=== PATIENT | female | born 1960 | race Caucasian/White ===

== ENCOUNTER 2019-05-06 11:37 | Observation (INO) | payer BC ==
--- NOTE | 2019-05-06 16:28 | ULT ---
RIGHT LOWER EXTREMITY VENOUS DUPLEX ULTRASOUND: HISTORY: Right leg pain with pain in the inner thigh. Heart cath done Tuesday. TECHNIQUE: Real-time color Doppler evaluation of the right lower extremity was performed to include the common f emoral, superficial femoral, profunda femoral, saphenous, popliteal, and posterior tibial veins. FINDINGS: This shows some incomplete compressibility of the distal superficial femoral vein, in the more distal thigh region. The patient was uncomfortable for this examination, tensing up. There was good blood f low demonstrated. I do not think this represents any type of DVT. The remainder of the veins compress normally with normal augmentation. 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 IMPRESSION: 1. No evidence of deep venous thrombosis. 2. 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 POS: [facility]
[2019-05-06] MEDS ORDERED: Morphine 2 MG/ML SYRINGE SLOW IVP PRN (17:24)
[2019-05-06] MEDS ORDERED: Morphine 4 MG/ML VIAL IV PRN (17:25)
[2019-05-06] MEDS ORDERED: Morphine 4 MG/ML VIAL ONE (17:25)
--- NOTE | 2019-05-06 20:13 | ULT ---
RIGHT GROIN ULTRASOUND: HISTORY: Post compression. FINDINGS: The pseudoaneurysm is decreased as compared to the prior examination however there is still a blind e nding vascular structure arising from the common femoral artery which is felt to represent the pseudo aneurysm neck. IMPRESSION: Persistent pseudoaneurysm neck. POS: [facility]
[2019-05-06] MEDS ORDERED: Atorvastatin Calcium 10 MG TAB PO SCH (21:00)
[2019-05-06 21:47] VITALS: BMI 41.5
--- NOTE | 2019-05-07 01:46 | CON ---
DATE OF CONSULTATION: HISTORY OF PRESENT ILLNESS: The patient is a pleasant 59-year-old woman who presents for evaluation of pain in her right groin. The patient has no previous cardiac history. She underwent a recent cardiac catheterization done at the [facility] and apparently to have normal left systolic function with normal coronary arteries. The patient went home after the procedure and started noticing pain in the right groin. The patient came to the emergency room for further evaluation. PAST MEDICAL HISTORY: 1. Diabetes mellitus. 2. Hypertension. PAST SURGICAL HISTORY: She has had knee surgery, D and C. SOCIAL HISTORY: Nonsmoker. MEDICATION: On admission Synthroid 0.1 mg tablet daily, lisinopril 10 daily, HCTZ 25 daily, and atorvastatin 1 tablet at bedtime. SOCIAL HISTORY: Nonsmoker. FAMILY HISTORY: Positive family history of heart disease. ALLERGIES: NO KNOWN DRUG ALLERGIES. PHYSICAL EXAMINATION: GENERAL: Obese woman in no acute distress. VITAL SIGNS: Blood pressure was 140/70. NECK: No jugular venous distention. LUNGS: Clear to auscultation. HEART: Regular rate and rhythm. ABDOMEN: Nondistended. EXTREMITIES: Showed a right groin pseudoaneurysm. The right groin was distended. LABORATORY RESULTS: Pending. IMPRESSION: 1. Pseudoaneurysm. 2. Hypertension. 3. Diabetes mellitus. PLAN: This patient presents with right groin pseudoaneurysm. Cardiac catheterization laboratory will be called to perform compression. 1. Admit to observation. 2. Right groin pseudoaneurysm compression. Please call my office. Job ID: [id number]
[2019-05-07 03:39] VITALS: TEMP 98.6
[2019-05-07] MEDS ORDERED: Sodium Chloride 0.9% 1,000 ML IV SCH (06:00)
[2019-05-07 06:35] LABS: #Basophils 0.1 thou/uL (0.0-0.2); #Eosinphils 0.4 thou/uL (0.0-0.7); #Lymphocytes 4.2 thou/uL (1.20-3.40); #Monocytes 0.7 thou/uL (0.11-0.59); #Neutrophils 6.1 thou/uL (1.40-6.50); %Basophils 0.8 % (0.0-1.0); %Eosinophils 3.2 % (0.0-10.0); %Lymphocytes 36.6 % (21.0-51.0); %Monocytes 6.2 % (0.0-10.0); %Neutrophils 53.2 % (42.0-75.0); Hemoglobin 12.8 g/dL (12.0-16.0); Mean Corpuscular HGB CONC 32.8 g/dL (32.0-36.0); Mean Corpuscular Hemoglobin 26.6 pg (27.0-31.0); Mean Corpuscular Volume 81.2 fL (78.0-98.0); Mean Platelet Volume 8.7 fL (7.4-10.4); Platelet Count 289 thou/uL (130-400); RBC Distribution Width 12.7 % (11.5-14.5); White Blood Cell (WBC) Count 11.4 thou/uL (4.8-10.8)
[2019-05-07 06:48] LABS: Anion Gap 16 mmol/L (10-20); BUN (Urea Nitrogen) 15 mg/dL (9.8-20.1); Calc. Creatinine Clearance 145 mL/min (70-130); Carbon Dioxide 26 mmol/L (22-29); Chloride 101 mmol/L (98-107); Estimated GFR-MDRD 73; Glucose 216 mg/dL (70-105); Potassium 4.8 mmol/L (3.5-5.1); Sodium 138 mmol/L (136-145)
--- NOTE | 2019-05-07 06:53 | CON ---
DATE OF CONSULTATION: HISTORY OF PRESENT ILLNESS: This is a 59-year-old female, who underwent cardiac catheterization at an outside facility this past week. She reported some discomfort in the groin area on the right as well as some paresthesias in her thigh. She was seen in the emergency room yesterday, where an ultrasound demonstrated a pseudoaneurysm and compression therapy was carried out and it appears to me that the pseudoaneurysm is mostly resolved. PAST MEDICAL HISTORY: Includes hypertension and diabetes mellitus. MEDICATIONS: Include; 1. Synthroid. 2. Lisinopril. 3. Hydrochlorothiazide. 4. Atorvastatin. PAST SURGICAL HISTORY: Includes bilateral knee arthroscopy, D and C. SOCIAL HISTORY: Lives in the [facility]. Raises cattle. Nonsmoker. PHYSICAL EXAMINATION: GENERAL: Alert, cooperative lady, in no distress. ABDOMEN: Obese with a large incarcerated umbilical hernia, unable to reduce this. She has palpable dorsalis pedis pulses bilaterally. She has a puncture site in the right groin and not particularly tender at this time and no bruits. ASSESSMENT/PLAN: I have reviewed both ultrasounds and it appeared that the pseudoaneurysm had mostly resolved after compression and we will recheck this morning if the ultrasound shows persistent pseudoaneurysm, then surgical intervention will be undertaken. Additional medications include metformin 1000 b.i.d. as well as glyburide 10 mg a day. Job ID: [id number]
--- NOTE | 2019-05-07 08:23 | ULT ---
VASCULAR ULTRASOUND RIGHT INGUINAL REGION: CLINICAL HISTORY: Pseudoaneurysm. FINDINGS: Doppler color flow imaging adjacent the right femoral artery reveals a focal outpouching with interna l flow which is compatible with a pseudoaneurysm. This measures approximately 9 mm in diameter. IMPRESSION: Subcentimeter pseudoaneurysm of the right inguinal region. Transcribed Date/Time: 05/07/2019 8:36 AM
[2019-05-07] MEDS ORDERED: Lisinopril 10 MG TAB PO SCH (09:00)
[2019-05-07] MEDS ORDERED: Hydrochlorothiazide 25 MG TAB PO SCH (09:00)
[2019-05-07] MEDS ORDERED: Heparin 5,000 UNITS/ML VIAL ONE (09:54)
[2019-05-07] MEDS ORDERED: Bupivacaine HCl 0.5%/Epinephrine 1:200,000/PF 30 ml Vial ONE (09:54)
[2019-05-07] MEDS ORDERED: Protamine Sulfate 50 MG/5 ML VIAL ONE (09:54)
[2019-05-07] MEDS ORDERED: Fentanyl 100 MCG/2 ML VIAL ONE ×4 (10:05→12:29)
[2019-05-07] MEDS ORDERED: Morphine 4 MG/ML VIAL ONE (12:41)
[2019-05-07] MEDS ORDERED: Morphine 2 MG/ML SYRINGE ONE (12:51)
--- NOTE | 2019-05-07 14:03 | OP ---
DATE OF PROCEDURE: 05/07/2019 PREOPERATIVE DIAGNOSIS: Right femoral artery pseudoaneurysm. POSTOPERATIVE DIAGNOSIS: Right femoral artery pseudoaneurysm/clotted pseudoaneurysm. ANESTHESIA: General, LMA. ESTIMATED BLOOD LOSS: Less than 10. DESCRIPTION OF PROCEDURE: After adequate anesthesia had been obtained, the patient was prepped and draped with tape holding her abdominal wall off her groin. A transverse incision was made just cephalad to the puncture site, carried through about 5 cm of adipose tissue. Femoral artery was dissected out proximal to the hematoma and then dissection carried cephalad exposing a medial and lateral profunda branch as well as the superficial femoral artery. The pseudoaneurysm cavity was entered and there was fresh clot; however, there was no active bleeding. The puncture site was ultimately discovered on the distal-most aspect of the common femoral artery and a 6-0 Prolene suture was placed x2 and had to ensure no further bleeding. The wound was then closed in layers and the patient was to be taken to the recovery room in guarded condition. Job ID: [id number]
[2019-05-07] MEDS ORDERED: HYDROcodone/Acetaminophen 5/325 mg Tablet PO PRN ×2 (15:31)
[2019-05-07] MEDS ORDERED: Ondansetron PF 4 MG/2 ML Vial ONE (15:51)
[2019-05-07] MEDS ORDERED: Dexamethasone 20 MG/5 ML VIAL ONE (15:51)
[2019-05-07] MEDS ORDERED: PROPOFOL 200 MG/20 ML VIAL ONE (15:51)
[2019-05-07] MEDS ORDERED: Lidocaine 1% PF 5 ML VIAL ONE (15:51)
[2019-05-07 16:47] VITALS: BP 133/81
[2019-05-07] MEDS ORDERED: FLU VACC QS2019-20(6MOS UP)/PF 60 MCG/0.5 ML SYRINGE IM ONE (21:00)
--- NOTE | 2019-05-07 22:10 | CON ---
DATE OF CONSULTATION: 05/07/2019 CHIEF COMPLAINT: Hernias. HISTORY OF PRESENT ILLNESS: This is a 59-year-old female, who was admitted for pseudoaneurysm repair by Dr. Bennett. She had had a cardiac cath at an outside institution within the last week. I was consulted because she has a history of chronic large umbilical and ventral hernias, she states had been present for several years and they only hurt when they are pushed on. She said she has reduced some in the past but not recently. She has no pain. No nausea or vomiting. No change in stools. She is active otherwise. 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 She denies previous abdominal surgery. PAST MEDICAL HISTORY: Includes diabetes mellitus and hypertension. SURGICAL HISTORY: Knee and D and C. MEDICATIONS: 1. Synthroid. 2. Lisinopril. 3. Hydrochlorothiazide. 4. Statin. SOCIAL HISTORY: . Nonsmoker. No alcohol or other drugs. REVIEW OF SYSTEMS: Ten-system review of systems is otherwise negative unless described above. PHYSICAL EXAMINATION: VITAL SIGNS: Blood pressure 127/81, pulse 76, and respirations 16. She is afebrile. HEENT: Sclerae anicteric. Oropharynx clear. NECK: No lymphadenopathy. CHEST: Clear. HEART: Regular rate and rhythm. ABDOMEN: Soft, nontender, nondistended. She has partially reducible umbilical and ventral hernias. No evidence of strangulation. No peritoneal signs or guarding. ASSESSMENT: 1. Large umbilical and ventral hernias. 2. Status post pseudoaneurysm repair. 3. Hypertension. 4. Diabetes mellitus, type 2. 5. Morbid obesity. PLAN: These could certainly be repaired. It would be elective. She is safe for discharge to come back and see me in the office in the next few weeks. I gave her my office number to call to make that appointment. They are concerned about timing of this surgery and whether it could wait until early 2019 and I think that it can. However, we will follow her closely as an outpatient until repair. I also recommend that she start cutting out carbs in order to lose weight prior to that surgery that would potentially lower her risk of complications and recurrence. We will see her back in the office. Okay to discharge from my standpoint. Job ID: [id number]
== END 2019-05-07 17:50 | disposition home or self-care (01) ==
LOC: ERS 11:37 → SURG B 19:52
PROVIDERS: ADMIT Internal Medicine; ATTEND Internal Medicine
PROC: 04QK0ZZ Repair Right Femoral Artery, Open Approach (ICD-10-PCS; principal; 2019-05-07)
DX: I72.4 Aneurysm of artery of lower extremity (principal); I10 Essential (primary) hypertension; E11.9 Type 2 diabetes mellitus without complications; K43.9 Ventral hernia without obstruction or gangrene; K42.9 Umbilical hernia without obstruction or gangrene; E66.01 Morbid (severe) obesity due to excess calories; Z68.41 Body mass index [BMI] 40.0-44.9, adult; Z79.84 Long term (current) use of oral hypoglycemic drugs; Z79.899 Other long term (current) drug therapy
CPT/HCPCS: 36415; 76936; 80048; 85025; 90471; 90686; 96374; 96375; G0008; G0378; J0670; J0690; J1100; J1644; J2001; J2270; J2405; J2704; J2720; J3010

== ENCOUNTER 2021-03-24 17:46 | Inpatient (IN) | payer BC, OTHER ==
[2021-03-24 19:24] LABS: #Eosinphils 0.3 thou/uL (0.0-0.7); #Lymphocytes 2.9 thou/uL (1.20-3.40); #Monocytes 0.7 thou/uL (0.11-0.59); #Neutrophils 5.4 thou/uL (1.40-6.50); %Basophils 0.3 % (0.0-1.0); %Eosinophils 3.7 % (0.0-10.0); %Monocytes 7.5 % (0.0-10.0); %Neutrophils 57.5 % (42.0-75.0); Hemoglobin 12.8 g/dL (12.0-16.0); Mean Corpuscular HGB CONC 32.4 g/dL (32.0-36.0); Mean Corpuscular Hemoglobin 26.1 pg (27.0-31.0); Mean Corpuscular Volume 80.6 fL (78.0-98.0); Mean Platelet Volume 8.8 fL (7.4-10.4); Platelet Count 258 thou/uL (130-400); RBC Distribution Width 12.6 % (11.5-14.5); White Blood Cell (WBC) Count 9.4 thou/uL (4.8-10.8)
[2021-03-24 19:48] LABS: ALT (SGPT) 14 U/L (8-55); AST (SGOT) 12 U/L (5-34); Albumin 4.2 g/dL (3.5-5.0); Alkaline Phosphatase 81 U/L (40-110); Anion Gap 17 mmol/L (10-20); BUN (Urea Nitrogen) 13 mg/dL (9.8-20.1); Bilirubin, Total 0.4 mg/dL (0.2-1.2); Calc. Creatinine Clearance 0 mL/min (70-130); Calcium 9.3 mg/dL (7.8-10.44); Carbon Dioxide 23 mmol/L (22-29); Chloride 103 mmol/L (98-107); Glucose 116 mg/dL (70-105); Lipase 15 U/L (8-78); Potassium 4.1 mmol/L (3.5-5.1); Protein, Total 7.2 g/dL (6.0-8.3); Sodium 139 mmol/L (136-145)
[2021-03-24] MEDS ORDERED: Morphine 4 MG/ML VIAL ONE (20:05)
[2021-03-24 20:15] LABS: Bilirubin Negative (Negative); Blood, Urine Negative (Negative); Clarity Clear (Clear); Glucose, Urine (Dipstick) Normal (Negative); Ketone, Urine Negative (Negative); Leukocyte Negative Leu/uL (Negative); Nitrite Negative (Negative); Protein, Urine (Dipstick) Negative (Neg-Trace); Specific Gravity, Urine 1.005 (1.002-1.036); Urobilinogen Normal mg/dL (Less than 2); pH, Urine 5.5 (5.0-9.0)
[2021-03-24 20:16] LABS: Pregnancy Test - Urine (BHCG) Negative (Negative); Pregu Control Background? CLEAR/WHITE (CLR/WHITE); Pregu Control Bar Appear? YES (CONTROL BAR); Specific Gravity 1.005 (1.002-1.036)
[2021-03-24] MEDS ORDERED: Promethazine HCl 25 MG/ML VIAL IM PRN (22:40)
[2021-03-24] MEDS ORDERED: hydrALAZINE 20 MG/ML VIAL SLOW IVP PRN (22:40)
[2021-03-24] MEDS ORDERED: Dextrose 50% Abboject 50 ML SYRINGE SLOW IVP PRN (22:40)
[2021-03-24] MEDS ORDERED: Dextrose 5% in Water 1,000 ML IV PRN (22:40)
[2021-03-24] MEDS ORDERED: Fentanyl 100 MCG/2 ML VIAL SLOW IVP PRN (22:40)
[2021-03-24] MEDS ORDERED: Acetaminophen 325 MG TAB PO PRN (22:40)
[2021-03-24] MEDS ORDERED: HumaLOG 300 UNITS/3 ML VIAL SC PRN (22:40)
[2021-03-24] MEDS ORDERED: Ondansetron PF 4 MG/2 ML Vial IVP PRN (22:40)
[2021-03-24] MEDS ORDERED: HYDROcodone/Acetaminophen 7.5/325 mg Tablet PO PRN (22:40)
[2021-03-24] MEDS: Sodium Chloride 0.9% 1,000 ML IV SCH (23:30)
[2021-03-24] MEDS: Famotidine 20 MG TAB PO SCH (23:38)
[2021-03-24] MEDS: Famotidine/PF 20 mg/2ml Vial SLOW IVP SCH (23:43)
[2021-03-25 00:44] VITALS: BMI 38.2
[2021-03-25] MEDS: Levothyroxine Sodium 25 MCG TAB PO SCH (05:20)
[2021-03-25 08:04] LABS: SARS-CoV-2 NAA Rapid Test Not Detected (NotDetected)
[2021-03-25] MEDS ORDERED: Hydrochlorothiazide 25 MG TAB PO SCH (09:00)
[2021-03-25] MEDS ORDERED: Lisinopril 10 MG TAB PO SCH (09:00)
[2021-03-25 10:54] LABS: Anion Gap 17 mmol/L (10-20); BUN (Urea Nitrogen) 14 mg/dL (9.8-20.1); Calc. Creatinine Clearance 149 mL/min (70-130); Calcium 8.8 mg/dL (7.8-10.44); Carbon Dioxide 20 mmol/L (22-29); Chloride 104 mmol/L (98-107); Glucose 157 mg/dL (70-105); Potassium 4.4 mmol/L (3.5-5.1); Sodium 137 mmol/L (136-145)
[2021-03-25 11:50] LABS: #Eosinphils 0.3 thou/uL (0.0-0.7); #Lymphocytes 2.2 thou/uL (1.20-3.40); #Neutrophils 7.2 thou/uL (1.40-6.50); %Basophils 0.4 % (0.0-1.0); %Eosinophils 2.9 % (0.0-10.0); %Lymphocytes 20.1 % (21.0-51.0); %Neutrophils 67.5 % (42.0-75.0); Mean Corpuscular HGB CONC 32.5 g/dL (32.0-36.0); Mean Corpuscular Hemoglobin 26.2 pg (27.0-31.0); Mean Corpuscular Volume 80.5 fL (78.0-98.0); Mean Platelet Volume 8.5 fL (7.4-10.4); Platelet Count 227 thou/uL (130-400); RBC Distribution Width 12.5 % (11.5-14.5); Red Blood Cell (RBC) Count 4.59 mill/uL (4.20-5.40); White Blood Cell (WBC) Count 10.7 thou/uL (4.8-10.8)
[2021-03-25] MEDS: glyBURIDE 5 MG TAB PO SCH (18:38)
[2021-03-25] MEDS: Sodium Chloride 0.9% 1,000 ML IV SCH ×3 (18:39→20:53)
[2021-03-25] MEDS: metFORMIN 500 MG TAB PO SCH (18:39)
[2021-03-25] MEDS: Famotidine/PF 20 mg/2ml Vial SLOW IVP SCH ×2 (18:40→20:45)
[2021-03-25] MEDS: Famotidine 20 MG TAB PO SCH ×2 (18:40→20:47)
[2021-03-25] MEDS ORDERED: Atorvastatin Calcium 40 MG TAB PO SCH (21:00)
[2021-03-26 05:38] VITALS: TEMP 97.9
[2021-03-26] MEDS: Levothyroxine Sodium 25 MCG TAB PO SCH (05:43)
[2021-03-26] MEDS: glyBURIDE 5 MG TAB PO SCH (05:51)
[2021-03-26] MEDS ORDERED: Bupivacaine 0.25% HCL 30 ML VIAL ONE (06:36)
[2021-03-26] MEDS ORDERED: Lidocaine 1% w/Epinephrine 1:100K 20 ML VIAL ONE (06:36)
[2021-03-26] MEDS ORDERED: Fentanyl 100 MCG/2 ML VIAL ONE ×3 (06:47→10:00)
[2021-03-26] MEDS ORDERED: HYDROmorphone 0.5 MG/0.5 ML SYRINGE ONE (06:47)
[2021-03-26] MEDS ORDERED: Midazolam HCl 2 mg/2 ml Vial ONE (07:26)
[2021-03-26] MEDS ORDERED: Lidocaine 1% PF 5 ML VIAL ONE (07:42)
[2021-03-26] MEDS ORDERED: Dexamethasone 20 MG/5 ML VIAL ONE (07:42)
[2021-03-26] MEDS ORDERED: Glycopyrrolate 0.2 MG/ML 5 ML SYRINGE ONE (07:42)
[2021-03-26] MEDS ORDERED: Rocuronium Bromide 10 MG/ML (10ML VIAL) ONE (07:42)
[2021-03-26] MEDS ORDERED: Ondansetron PF 4 MG/2 ML Vial ONE (07:42)
[2021-03-26] MEDS ORDERED: PROPOFOL 200 MG/20 ML VIAL ONE (07:42)
[2021-03-26] MEDS ORDERED: Ketorolac Tromethamine 30 MG/ML VIAL ONE (07:42)
[2021-03-26] MEDS ORDERED: HYDROcodone/Acetaminophen 7.5/325 mg Tablet PO PRN (09:06)
[2021-03-26] MEDS ORDERED: HYDROmorphone 2 MG/ML VIAL SLOW IVP PRN (09:24)
[2021-03-26] MEDS ORDERED: Promethazine HCl 25 MG/ML VIAL IVPB PRN (09:24)
[2021-03-26] MEDS ORDERED: Meperidine HCl/PF 25 MG/ML VIAL SLOW IVP PRN (09:24)
[2021-03-26] MEDS ORDERED: Promethazine HCl 25 MG/ML VIAL IM PRN (09:24)
[2021-03-26] MEDS ORDERED: Ondansetron HCl/PF 4 MG/2 ML Vial IVP PRN (09:24)
[2021-03-26] MEDS: HYDROcodone/Acetaminophen 7.5/325 mg Tablet PO PRN ×2 (12:04→16:34)
[2021-03-26 13:01] VITALS: BP 120/70
== END 2021-03-26 17:11 | disposition home or self-care (01) | DRG 355 ==
LOC: ERS 17:46 → SJJU 20:21
PROVIDERS: ADMIT Surgery; ATTEND Surgery
PROC: 0WUF4JZ Supplement Abdominal Wall with Synthetic Substitute, Percutaneous Endoscopic Approach (ICD-10-PCS; principal; 2021-03-26)
PROC: 8E0W4CZ Robotic Assisted Procedure of Trunk Region, Percutaneous Endoscopic Approach (ICD-10-PCS; 2021-03-26)
DX: K43.6 Other and unspecified ventral hernia with obstruction, without gangrene (principal); Z20.822 Contact with and (suspected) exposure to COVID-19; E11.9 Type 2 diabetes mellitus without complications; E03.9 Hypothyroidism, unspecified; I10 Essential (primary) hypertension; Z79.899 Other long term (current) drug therapy; Z79.84 Long term (current) use of oral hypoglycemic drugs; Z79.890 Hormone replacement therapy
CPT/HCPCS: 36415; 36416; 80048; 80053; 81003; 81025; 83605; 83690; 85025; 93005; 93010; 96374; J0690; J1100; J1170; J1885; J2250; J2270; J2405; J2704; J3010; J7050; S0020; S0028; U0002

== ENCOUNTER 2021-03-29 00:22 | Emergency (ER) | payer OTHER ==
[2021-03-29 02:08] LABS: #Eosinphils 0.3 thou/uL (0.0-0.7); #Lymphocytes 2.9 thou/uL (1.20-3.40); #Monocytes 1.3 thou/uL (0.11-0.59); #Neutrophils 6.6 thou/uL (1.40-6.50); %Basophils 0.3 % (0.0-1.0); %Eosinophils 2.3 % (0.0-10.0); %Lymphocytes 25.8 % (21.0-51.0); %Neutrophils 59.6 % (42.0-75.0); Hemoglobin 11.4 g/dL (12.0-16.0); Mean Corpuscular HGB CONC 32.8 g/dL (32.0-36.0); Mean Corpuscular Hemoglobin 26.8 pg (27.0-31.0); Mean Corpuscular Volume 81.7 fL (78.0-98.0); Mean Platelet Volume 8.5 fL (7.4-10.4); Platelet Count 230 thou/uL (130-400); RBC Distribution Width 12.6 % (11.5-14.5); Red Blood Cell (RBC) Count 4.25 mill/uL (4.20-5.40); White Blood Cell (WBC) Count 11.1 thou/uL (4.8-10.8)
[2021-03-29 02:31] LABS: Anion Gap 14 mmol/L (10-20); BUN (Urea Nitrogen) 8 mg/dL (9.8-20.1); Calc. Creatinine Clearance 0 mL/min (70-130); Carbon Dioxide 24 mmol/L (22-29); Chloride 105 mmol/L (98-107); Potassium 4.2 mmol/L (3.5-5.1); Sodium 139 mmol/L (136-145)
[2021-03-29 02:32] LABS: ALT (SGPT) 13 U/L (8-55); AST (SGOT) 13 U/L (5-34); Albumin 3.7 g/dL (3.5-5.0); Alkaline Phosphatase 83 U/L (40-110); Bilirubin, Total 0.7 mg/dL (0.2-1.2); Calcium 9.1 mg/dL (7.8-10.44); Globulin 2.9 g/dL (2.4-3.5); Glucose 158 mg/dL (70-105); Lipase 5 U/L (8-78); Protein, Total 6.6 g/dL (6.0-8.3)
[2021-03-29 04:17] LABS: SARS-CoV-2 NAA Rapid Test Not Detected (NotDetected)
[2021-03-29] MEDS ORDERED: Piperacillin/Tazobactam 3.375 GM VIAL ONE (04:25)
[2021-03-29 04:54] LABS: Bilirubin Negative (Negative); Blood, Urine Negative (Negative); Clarity Clear (Clear); Glucose, Urine (Dipstick) Normal (Negative); Ketone, Urine Negative (Negative); Leukocyte Negative Leu/uL (Negative); Nitrite Negative (Negative); Protein, Urine (Dipstick) Negative (Neg-Trace); Specific Gravity, Urine 1.042 (1.002-1.036); Urobilinogen Normal mg/dL (Less than 2)
[2021-03-29] MEDS ORDERED: Iopamidol-370 76% 500 ML 1 ML ONE (09:28)
== END 2021-03-29 05:29 | disposition home or self-care (01) ==
LOC: ERS 00:22
DX: R10.9 Unspecified abdominal pain (principal); R50.9 Fever, unspecified; E11.9 Type 2 diabetes mellitus without complications; I10 Essential (primary) hypertension; E03.9 Hypothyroidism, unspecified; D72.829 Elevated white blood cell count, unspecified; Z20.822 Contact with and (suspected) exposure to COVID-19; Z79.84 Long term (current) use of oral hypoglycemic drugs; Z79.899 Other long term (current) drug therapy
CPT/HCPCS: 36415; 71045; 74177; 80053; 81003; 83605; 83690; 85025; 87040; 87086; 96374; J2543; Q9967; U0002